=== PATIENT | female | born 1990 | race Caucasian/White ===

== ENCOUNTER 2023-12-09 07:38 | Emergency (ER) | payer OTHER ==
[~2023-12-09] VITALS: Ht 160 cm; Wt 80.5 kg
[2023-12-09 07:43] VITALS: BP 144/97; PULSE 83; RESP 18; TEMP 97.7; O2SAT 96
[2023-12-09] MEDS: PROCHLORPERAZINE 10 MG/2 ML VIAL IM ONE (08:49)
[2023-12-09] MEDS: KETOROLAC 30 MG/ML VIAL IM ONE (08:51)
[2023-12-09 10:33] VITALS: BP 138/83; PULSE 78; RESP 18; TEMP 98.3; O2SAT 96
[2023-12-09] MEDS ORDERED: PROC-87 PO (10:35)
[2023-12-09] MEDS ORDERED: NAPR-337 PO (10:35)
== END 2023-12-09 10:36 | disposition home or self-care (01) ==
LOC: MED 07:38
DX: R51.9 Headache, unspecified (principal); R11.0 Nausea; R42 Dizziness and giddiness; H53.8 Other visual disturbances; H53.149 Visual discomfort, unspecified; F17.200 Nicotine dependence, unspecified, uncomplicated; Z85.3 Personal history of malignant neoplasm of breast; Z79.1 Long term (current) use of non-steroidal anti-inflammatories (NSAID); Z79.899 Other long term (current) drug therapy
CPT/HCPCS: 70450; 81025; 96372; 99285; J0780; J1885